=== PATIENT | male | born 1960 | race African-American/Black ===

== ENCOUNTER 2018-03-06 10:05 | Emergency (ER) | payer OTHER, MEDICAID ==
[~2018-03-06] VITALS: Ht 177.8 cm; Wt 57.0 kg
[2018-03-06] MEDS ORDERED: PREDNISONE 20MG TABLET PO STA (10:47)
[2018-03-06] MEDS ORDERED: LEVOFLOXACIN 500MG TABLET PO ONE (11:00)
[2018-03-06] MEDS ORDERED: IPRATROPIUM/ALBUTEROL 0.5-3(2.5)MG/3ML NEB HHN ONE (11:00)
[2018-03-06 13:39] VITALS: BP 121/70
== END 2018-03-06 13:48 | disposition home or self-care (01) ==
LOC: ER 10:13
DX: R06.02 Shortness of breath (principal); R05 Cough; R09.3 Abnormal sputum; F17.200 Nicotine dependence, unspecified, uncomplicated; J40 Bronchitis, not specified as acute or chronic; Z90.49 Acquired absence of other specified parts of digestive tract; Z98.890 Other specified postprocedural states
CPT/HCPCS: 71045; 99283; J7512; J7620